=== PATIENT | male | born 1960 | race Caucasian/White ===

== ENCOUNTER → 2021-12-24 | Day surgery (SDC) | payer OTHER ==
[~2021-12-24] VITALS: Ht 170.2 cm; Wt 77.1 kg
[~2021-12-24] MED LIST: ASPIRIN EC81 MG PO; ATORVASTATIN CA40 MG PO; BISOPROLOL-HCT1 EACH PO; DAILY VALUE1 EACH PO; GLUCOSAMINE &1 EACH PO; LISINOPRIL20 MG PO; LOVAZA1 GM PO; PRESERVISION A1 EACH PO; PRILOSEC20 MG PO; VITAMIN D3125 MC2 PO; ZYRTEC10 MG PO
== END | disposition home or self-care (01) ==
LOC: FAS 10:10
DX: Z12.11 Encounter for screening for malignant neoplasm of colon (principal); D12.5 Benign neoplasm of sigmoid colon; I10 Essential (primary) hypertension; E78.00 Pure hypercholesterolemia, unspecified; K21.9 Gastro-esophageal reflux disease without esophagitis; Z79.82 Long term (current) use of aspirin; Z79.899 Other long term (current) drug therapy; Z72.89 Other problems related to lifestyle
CPT/HCPCS: J2704; J7120